=== PATIENT | female | born 1990 | race Caucasian/White ===

== ENCOUNTER 2022-10-02 09:06 | Emergency (ER) | payer OTHER ==
[2022-10-02] MEDS ORDERED: Ondansetron 4 MG/2 ML SDV IVPUSH ONE ×2 (09:22→10:29)
[2022-10-02] MEDS ORDERED: Ondansetron 4 MG/2 ML SDV ONE (09:23)
[2022-10-02] MEDS ORDERED: Sodium Chloride 0.9% 1,000 ML IV ONE (09:31)
[2022-10-02 09:48] LABS: ESTIMATED GFR 86 mL/min (>60)
[2022-10-02] MEDS ORDERED: Piperacillin/Tazobactam 3.375 GM in Sodium Chloride 0.9% 50 ML IV SCH (10:15)
[2022-10-02] MEDS ORDERED: Iopamidol 755 Mg/ML 75 ML Bottle IV ONE (11:44)
== END 2022-10-02 11:40 | disposition home or self-care (01) ==
LOC: FB.ED 09:06
DX: R74.02 Elevation of levels of lactic acid dehydrogenase [LDH] (principal); D72.829 Elevated white blood cell count, unspecified
CPT/HCPCS: 36415; 74177; 80053; 81001; 83605; 85025; 86140; 87040; 96361; 96365; 96375; 96376; 99284; J2405; J2543; J7030; Q9967